=== PATIENT | female | born 1980 | race Caucasian/White ===

== ENCOUNTER 2016-05-11 10:52 | Inpatient (IN) | payer OTHER ==
[2016-05-11] MEDS ORDERED: NS 100 ML BAG (MINI-BAG) IV ONE (11:07)
[2016-05-11] MEDS ORDERED: AMPICILLIN SODIUM 2 GM/10 ML VIAL ONE (11:07)
[2016-05-11] MEDS ORDERED: fentaNYL 2MCG/ML/BUP 0.1% RTU 100 ML BAG EP ONE (11:18)
[2016-05-11] MEDS ORDERED: BUPIVACAINE 0.25% 30 ML SDV ONE (11:19)
[2016-05-11] MEDS ORDERED: fentaNYL 100 MCG/2 ML INJ ONE ×2 (11:19→15:17)
[2016-05-11] MEDS ORDERED: PHENYLEPHRINE HCL 100 MCG/ML SYR ONE (11:19)
[2016-05-11] MEDS ORDERED: ONDANSETRON 4 MG/2 ML VIAL ONE ×2 (11:33→16:00)
[2016-05-11] MEDS ORDERED: OLIVE OIL 118 ML BTL MISC PRN (11:41)
[2016-05-11] MEDS ORDERED: OXYTOCIN/RINGERS LACTATE 1,000 ML IV PRN (11:41)
[2016-05-11] MEDS ORDERED: LR 1,000 ML IV PRN (11:41)
[2016-05-11] MEDS ORDERED: EPSOM SALT 454 GM TP PRN (11:41)
[2016-05-11] MEDS ORDERED: TERBUTALINE SULFATE 1 MG/ML VIAL IV PRN (11:41)
[2016-05-11] MEDS ORDERED: LIDOCAINE 1% 30 ML SDV SC PRN (11:41)
--- NOTE | 2016-05-11 11:41 | OBPROG ---
OBG Progress Note Assessment/Plan: Assessment: cat 1 fhr vomiting/nausea epidural for pain relief srom clear 1000 contractions regular since 0800 Plan:expectant management of labor / epidural for pain relief 05/11/16 11:38 Subjective: I am hoping to get an epidural for pain relief - SVE Dilation (cm): 3 Effacement (%): 80 Station: -1 Current Contraction Pattern: Regular FHR (bpm): 135 FHR Pattern Variability: Moderate FHR Category: 1 Membranes: SROM Amniotic Fluid Color: Clear - Physical Exam General Appearance: WD/WN, alert, no apparent distress Respiratory: chest non-tender, lungs clear, normal breath sounds Cardiac/Chest: regular rate, rhythm Abdomen: normal bowel sounds Membranes: SROM Amniotic Fluid Color: clear Extremities: normal range of motion, Orion's sign (negqative bilaterally/ dtrs1 + bilaterally) Skin: normal color, warm/dry Neuro/Psych: no motor/sensory deficits, alert, normal mood/affect, oriented x 3 ICD10 Worksheet Patient Problems: Problems Problem Status Onset Full-term PROM with onset of labor within 24 hours of rupture Acute TERM LABOR PROM Acute - ICD10 Problem Qualifiers (2) Full-term PROM with onset of labor within 24 hours of rupture
[2016-05-11] MEDS ORDERED: AMPICILLIN SODIUM 2 GM/10 ML VIAL IV ONE (12:00)
[2016-05-11 12:10] LABS: % IMMATURE GRANULYOCYTES 0.6 % (0.0-1.1); ABSOLUTE IMMATURE GRANULOCYTES 0.12 10^3/uL (0.00-0.10); ADD DIFF? NO; ADD MORPH? NO; ADD SCAN? NO; ATYPICAL LYMPHOCYTE FLAG 0 (0-99); FRAGMENT RBC FLAG 0 (0-99); HEMATOCRIT 44.6 % (38.0-47.0); LEFT SHIFT FLG 0 (0-99); LIPEMIA HEMOLYSIS FLAG 90 (0-99); MEAN CELL HEMOGLOBIN 33.4 pg (27.9-34.1); MEAN CELL HEMOGLOBIN CONCENTR. 35.9 g/dL (32.4-36.7); MEAN CELL VOLUME 93.1 fL (81.5-99.8); MEAN PLATELET VOLUME 11.9 fL (8.7-11.7); PLATELET CLUMPS FLAG 10 (0-99); PLATELET COUNT 201 10^3/uL (150-400); RED BLOOD CELL COUNT 4.79 10^6/uL (4.18-5.33); RED CELL DISTRIBUTION WIDTH 12.8 % (11.5-15.2)
--- NOTE | 2016-05-11 12:26 | GHP ---
[f rep st] HISTORY AND PHYSICAL DATE OF ADMISSION: 05/11/2016 HISTORY OF PRESENT ILLNESS: The patient is a 1, para 0, 36-year-old with an EDC of 05/17/2016, which gives her a gestational age of 39 and 1/7 weeks , who comes in today, on 05/11/2016, with complaint of contractions since 8 a.m. on 05/11/2016, and rupture of membranes for clear fluid at 10 o'clock on . PAST MEDICAL HISTORY: The patient denies medical history other than anxiety. The patient states has had adenoids out, tonsillectomy, with some difficulty with anesthesia. The patient also had sinus surgery in 2000. History of diverticulitis. GYNECOLOGICAL HISTORY: The patient had previously taken OCPs in 2015. All Paps have been within normal limits. Last Pap 04/2014. History of a yeast infection x1. No difficulties. LABS: Patient is A positive, antibody negative. RPR is nonreactive. Rubella is immune. Hepatitis is negative. HIV is negative. Trio screen was negative. AFP was negative. Pap was within normal limits. Gonorrhea and chlamydia were negative. Verifi was negative. 1 hour GTT was within normal limits. Patient is GBS positive. ALLERGIES: NKDA. ASSESSMENT: GENERAL: Patient is awake, alert, oriented x3. LUNGS: Clear bilaterally. ABDOMEN: Bowel sounds are positive in all 4 quadrants. EXTREMITIES: DTRs are 1+ bilaterally and no clonus. Homans sign is negative bilaterally. GENITOURINARY: Abdomen is soft on palpation, santos every 2- 3 minutes. Exam is 3-4 cm, 80% effaced, -1 station, cephalic. PLAN OF CARE: 1. Group B strep positive. The patient is not allergic to any medications, so we will begin ampicillin per protocol. 2. Expectant management of labor. 3. Epidural for pain relief. /[id number]/MODL MTDD
[2016-05-11] MEDS ORDERED: AMMONIA AROMATIC 1 EACH AMP IH ONE (12:41)
[2016-05-11] MEDS ORDERED: LIDOCAINE 1% 30 ML SDV ONE (12:41)
[2016-05-11] MEDS ORDERED: OLIVE OIL 118 ML BTL ONE (12:41)
[2016-05-11] MEDS ORDERED: TERBUTALINE SULFATE 1 MG/ML VIAL ONE (12:42)
[2016-05-11] MEDS ORDERED: OXYTOCIN 10 UNIT/ML VIAL ONE (12:42)
[2016-05-11] MEDS ORDERED: MISOPROSTOL 200 MCG TAB ONE (12:42)
--- NOTE | 2016-05-11 13:00 | OBPROG ---
OBG Progress Note Assessment/Plan: Assessment: 35y/o IUP @39w1d FHR decel to 70-90bpm x10 min with return to baseline s/p interventions SVE change from 3cm to 6cm with decent from -1 to +1 station, anterior cerv edema Plan: Epidural for pain mgmt Con't maternal/ monitoring Con't GBS prophylaxis per protocol Expectant mgmt of labor 05/11/16 12:57 Subjective: Called to pt room d/t decreased FHTs. O2 being administered, pt on L side. Susanna WAYNEM at bedside. Changed to hands & knees position, FHTs still down. Dr. Bill paged to room. Pt changed to prone position, FHTs returned to baseline. Objective: 05/11/16 11:30 - SVE Dilation (cm): 6 Effacement (%): 80 Station: +1 Current Contraction Pattern: Irregular FHR (bpm): 120 (@1300 s/p decel) FHR Pattern Variability: Moderate FHR Category: 2 Membranes: SROM (@1000) Amniotic Fluid Color: Clear ICD10 Worksheet Patient Problems: Problems Problem Status Onset Full-term PROM with onset of labor within 24 hours of rupture Acute TERM LABOR PROM Acute
[2016-05-11] MEDS ORDERED: PHENYLEPHRINE HCL 100 MCG/ML SYR IVP PRN (13:34)
[2016-05-11] MEDS ORDERED: ONDANSETRON 4 MG/2 ML VIAL IVP PRN ×2 (13:34→18:56)
--- NOTE | 2016-05-11 13:39 | POSTANESTH ---
Post Anesthetic Evaluation Cardiovascular Status: Normal, Stable Respiratory Status: Normal, Stable, Similar to Pre-op Cond. Level of Consciousness/Mental Status: Can Participate in Eval, Alert and Oriented Pain Control: Adequate, Prn Tx Ordered Nausea/Vomiting Control: Adequate, Prn Tx Ordered Complications Possibly Related to Anesthesia: None Noted (Tolerated CSE well, stable, comfortable.)
--- NOTE | 2016-05-11 13:39 | PREANESOB ---
Obstetric Pre-Anesthesia Info - General Info Proposed Procedure: Labor and delivery. : 1 Para: 0 WBD: 39 - Info Status: Full Term Monitors: External FHR Baseline (bpm): 135 FHR Pattern: Reassuring - Labor Status Cervical Dilation per last OB SVE: 4 Station per last OB SVE: +1 Amniotic Fluid Color: Clear Indications for Labor Analgesia: Pain Control Labor Epidural: Proposed Anesthesia ROS: Negative. Allergies/Adverse Reactions: Allergy/AdvReac Type Severity Reaction Status Date / Time No Known Allergies Allergy Unverified 05/11/16 11:41 Home Medications: Medication Instructions Recorded Vit27&Calcium/Iron/FA 1 each PO DAILY 05/11/16 [ Rx 1 Tablet (RX)] Visit Medications: Generic Name Dose Route Start Last Admin Trade Name Freq PRN Reason Stop Dose Admin Ampicillin Sodium 1 gm 05/11/16 16:00 Ampicillin IV 06/10/16 15:59 Q4H RACHELL Lactated Ringer's 1,000 mls @ 0 mls/hr 05/11/16 11:41 05/11/16 13:19 Lr IV 11/07/16 11:40 1,000 mls PRN PRN Administration SEE PROTOCOL CONDITIONS Protocol Per Protocol Oxytocin/Lactated Ringer's 1,000 mls @ 150 mls/hr 05/11/16 11:41 Pitocin 20 Units/Lr (Premix) IV PRN PRN Post- bleeding Ibuprofen 600 mg 05/11/16 11:41 Motrin PO 11/07/16 11:40 Q6HRS PRN post , inflammation Lidocaine HCl 30 ml 05/11/16 11:41 Lidocaine Hcl 1% SC 11/07/16 11:40 ONCE PRN Episiotomy Magnesium Sulfate 454 gm 05/11/16 11:41 Epsom Salt TP 11/07/16 11:40 PRN PRN perineal discomfort Rollins Oil 118 ml 05/11/16 11:41 Sweet Oil MISC 11/07/16 11:40 ONCE PRN preneal massage Terbutaline Sulfate 0.25 mg 05/11/16 11:41 Brethine IV 11/07/16 11:40 ONCE PRN Tachysystole Discontinued Medications Generic Name Dose Route Start Last Admin Trade Name Freq PRN Reason Stop Dose Admin Ammonia (Aromatic Spirit) Confirm 05/11/16 12:41 Ammonia Aromatic Administered 05/11/16 12:42 Dose 1 each IH .STK-MED ONE Ampicillin Sodium Confirm 05/11/16 11:07 Ampicillin Administered 05/11/16 11:08 Dose 2 gm .ROUTE .STK-MED ONE Ampicillin Sodium 2 gm 05/11/16 12:00 05/11/16 11:30 Ampicillin IV 05/11/16 12:01 2 gm ONCE ONE Administration Bupivacaine HCl Confirm 05/11/16 11:19 Sensorcaine 0.25% Sdv Administered 05/11/16 11:20 Dose 30 ml .ROUTE .STK-MED ONE Ephedrine Sulfate Confirm 05/11/16 12:42 Ephedrine Sulfate Administered 05/11/16 12:43 Dose 50 mg .ROUTE .STK-MED ONE Fentanyl Confirm 05/11/16 11:19 Sublimaze Administered 05/11/16 11:20 Dose 100 mcg .ROUTE .STK-MED ONE Fentanyl/Bupivacaine HCl Confirm 05/11/16 11:18 Fentanyl/Bupivacaine/Ns 2 Mcg/Ml 0.1% (Premix Administered 05/11/16 11:19 Dose 100 ml EP .STK-MED ONE Lidocaine HCl Confirm 05/11/16 12:41 Lidocaine Hcl 1% Administered 05/11/16 12:42 Dose 30 ml .ROUTE .STK-MED ONE Misoprostol Confirm 05/11/16 12:42 Cytotec Administered 05/11/16 12:43 Dose 800 mcg .ROUTE .STK-MED ONE Rollins Oil Confirm 05/11/16 12:41 Sweet Oil Administered 05/11/16 12:42 Dose 118 ml .ROUTE .STK-MED ONE Ondansetron HCl Confirm 05/11/16 11:33 Zofran Administered 05/11/16 11:34 Dose 4 mg .ROUTE .STK-MED ONE Oxytocin Confirm 05/11/16 12:42 Pitocin Administered 05/11/16 12:43 Dose 40 unit .ROUTE .STK-MED ONE Phenylephrine HCl Confirm 05/11/16 11:19 Dhaval-Synephrine Administered 05/11/16 11:20 Dose 1,000 mcg .ROUTE .STK-MED ONE Sodium Chloride Confirm 05/11/16 11:07 Sodium Cl 0.9% (Mini-Bag) Administered 05/11/16 11:08 Dose 100 ml IV .STK-MED ONE Terbutaline Sulfate Confirm 05/11/16 12:42 Brethine Administered 05/11/16 12:43 Dose 1 mg .ROUTE .STK-MED ONE - Anesthesia History Response to Local Anesthetics: Normal - Social History Substance Use/Abuse: Denies - Focused Exam Blood Pressure: 115/74 Heart Rate: 60 Height/Weight (Nursing): Height 165.1 cm Weight 74.389 kg Physical Exam: Within normal limits. ASA Status: II Labs: 05/11/16 11:30 Patient ABO/Rh A POSITIVE 05/11/16 11:30 - Plan Anesthetic Plan: CSE Consent Signed and on Chart: Yes Patient/Guardian Understands and Agrees to Plan: Yes
[2016-05-11] MEDS ORDERED: fentaNYL 2MCG/ML/BUP 0.1% RTU 100 ML EP SCH (14:00)
[2016-05-11] MEDS ORDERED: LR 500 ML IV SCH (14:00)
--- NOTE | 2016-05-11 14:17 | OBPROG ---
OBG Progress Note Assessment/Plan: Assessment: cat 2-3 fhr vomiting/nausea resolved denies pain comfortable with epidural continued clear fluid from the vagina contractions q 3 minutes with occasional prolonged contractions 5-7 minutes ise applied by nurse during deceleration palpation to abdomen soft change in position on entrance to room to hands and knees to left side slow resolution of deceleration to baseline discussed potential for section verbalized understanding consult dr. christopher on poc Plan:expectant management of labor / epidural for pain relief 05/11/16 11:38 05/11/16 14:13 Objective: 05/11/16 11:30 Patient ABO/Rh A POSITIVE 05/11/16 11:30 Temp Pulse Resp BP Pulse Ox 60 115/74 05/11/16 13:38 05/11/16 13:38 - SVE Dilation (cm): 6 Effacement (%): 80 Station: 0 Current Contraction Pattern: Regular FHR (bpm): 145 (after deceleration 70-90) FHR Pattern Variability: Moderate FHR Category: 2 Membranes: SROM Amniotic Fluid Color: Clear ICD10 Worksheet Patient Problems: Problems Problem Status Onset Full-term PROM with onset of labor within 24 hours of rupture Acute TERM LABOR PROM Acute - ICD10 Problem Qualifiers (2) Full-term PROM with onset of labor within 24 hours of rupture
[2016-05-11] MEDS ORDERED: LIDO/EPI 2% **for epidural** 20 ML SDV ONE (15:16)
--- NOTE | 2016-05-11 15:37 | OBPROG ---
OBG Progress Note Assessment/Plan: Assessment: Plan: Subjective: patient came in in spontaneous labor. progressed to 6 cm. has had 3 prolonged decels. fhts have been very reassuring between decels. Just recently had her third decel to the 60's. fhts returned to baseline after 10 minutes. terbutaline was given. fhts returned to baseline and fhts showed spontaneous accel. long discission with patient and her about management options. patient is still remote from delivery and not making cervical change. discussed proceeding with pltcs now or if she has an additional deceleration. discussed if we proceed now it will be calmer. patient and her discussing. will sign consent and await her decision. Objective: 05/11/16 11:30 Patient ABO/Rh A POSITIVE 05/11/16 11:30 Temp Pulse Resp BP Pulse Ox 61 118/80 05/11/16 15:18 05/11/16 15:18 - SVE Dilation (cm): 6, 7 Effacement (%): 75 Station: -1 Current Contraction Pattern: Irregular FHR Pattern Variability: Moderate FHR Category: 1 Membranes: SROM ICD10 Worksheet Patient Problems: Problems Problem Status Onset Full-term PROM with onset of labor within 24 hours of rupture Acute TERM LABOR PROM Acute
[2016-05-11] MEDS ORDERED: ceFAZolin 2 GM/DEXTROSE 100 ML IV ONE (15:38)
[2016-05-11] MEDS ORDERED: OXYTOCIN 100 UNITS/10 ML VIAL ONE (16:00)
[2016-05-11] MEDS ORDERED: morphINE PF 5 MG/10 ML INJ ONE (16:02)
[2016-05-11] MEDS ORDERED: MEPERIDINE 25 MG/ML SYR ONE (16:17)
[2016-05-11] MEDS ORDERED: METOCLOPRAMIDE 10 MG/2 ML VIAL ONE ×2 (16:23)
[2016-05-11] MEDS ORDERED: DEXAMETHASONE 4 MG/ML VIAL ONE ×2 (16:23)
[2016-05-11] MEDS ORDERED: SIMETHICONE 80 MG TAB CHEW PO PRN (16:46)
[2016-05-11] MEDS ORDERED: BISACODYL 10 MG SUPP PR PRN (16:46)
[2016-05-11] MEDS ORDERED: LACTULOSE 20 GM/30 ML UDCUP PO PRN (16:46)
[2016-05-11] MEDS ORDERED: ACETAMINOPHEN 325 MG TAB PO PRN (16:46)
[2016-05-11] MEDS ORDERED: POLYETHYLENE GLYCOL 3350 17 GM PKT PO PRN (16:46)
[2016-05-11] MEDS ORDERED: MAGNESIUM HYDROXIDE 30 ML UDCUP PO PRN (16:46)
--- NOTE | 2016-05-11 16:52 | OBPROC ---
- Delivery Pre-op Diagnoses: IUP 39 2/7 weeks, intolerance of labor Post-op Diagnoses: same plus occiput posterior Procedure: Primary, Low Transverse Surgeon: Alexandra Bill Manager Asset Management: Buffy Shah Anesthesiologist: Aidan Coyne Anesthesia: Epidural Complications: None EBL: 800 - [place] Info Infant A Delivery Date: 05/11/16 Delivery Time: 16:12 Sex of : Female Score (1 Min): 8 Score (5 Min): 9
[2016-05-11 17:18] LABS: PH VENOUS CORD BLOOD 7.28 (7.20-7.42)
[2016-05-11] MEDS: KETOROLAC 30 MG/1 ML SDV IVP SCH (18:30)
[2016-05-11] MEDS ORDERED: NALOXONE HCL 0.4 MG/ML INJ IVP PRN (18:56)
--- NOTE | 2016-05-11 18:59 | POSTANESTH ---
Post Anesthetic Evaluation Cardiovascular Status: Normal, Stable, Similar to Pre-Op Cond Respiratory Status: Normal, Stable, Similar to Pre-op Cond. Level of Consciousness/Mental Status: Can Participate in Eval, Alert and Oriented (Epidural dosed for C Section, BP treated, comfortable for surgery, to PACU, no pain or nausea.) Pain Control: Adequate, Prn Tx Ordered Nausea/Vomiting Control: Adequate, Prn Tx Ordered Complications Possibly Related to Anesthesia: None Noted
[2016-05-11] MEDS: AMPICILLIN SODIUM 1 GM VIAL IV SCH ×2 (19:25→21:08)
[2016-05-12] MEDS: KETOROLAC 30 MG/1 ML SDV IVP SCH ×3 (00:07→11:53)
[2016-05-12] MEDS: SENNOSIDES/DOCUSATE SODIUM TAB PO SCH ×4 (00:16→22:05)
[2016-05-12] MEDS: AMPICILLIN SODIUM 1 GM VIAL IV SCH ×5 (04:25→18:12)
--- NOTE | 2016-05-12 04:52 | GOP ---
[f rep st] OPERATIVE REPORT DATE OF OPERATION: 05/11/2016 SURGEON: Alexandra Bill DO ASSEMBLER MOLDED FRAMES: Buffy Shah CNM. PREOPERATIVE DIAGNOSIS: 1. Intrauterine at 39-2/7 weeks gestation. 2. Spontaneous rupture of membranes. 3. intolerance of labor. POSTOPERATIVE DIAGNOSIS: 1. Intrauterine at 39-2/7 weeks gestation. 2. Spontaneous rupture of membranes. 3. intolerance of labor. 4. Occiput posterior. PROCEDURE PERFORMED: Primary low transverse section. FINDINGS: 1. Viable, 7-pound, 2-ounce female in the occiput posterior presentation, delivered at 4:14 p.m., and the Apgars were 8 and 9. 2. Intact placenta with 3-vessel cord. 1. Normal ovaries, uterus, and tubes. ESTIMATED BLOOD LOSS: 800 cc. INDICATIONS: Patient is a 36-year-old, 1, para 0, who is 39-2/7 weeks gestation. She prese nted after spontaneous rupture of membranes and in active labor. She progressed to 6 cm dilated. D uring her labor course, she had 3 separate incidences of prolonged decelerations to the 60s, lasting approximately 10 minutes. With repositioning and oxygen, the status did recover. After the last episode, the decelerations were in the 60s for 10 minutes. She had not made any cervical progr ess past 6 cm. A long discussion was had with the patient, after patient was given terbutaline and the heart tracings were reassuring, about the management options. We have discussed expected management and continued observation versus proceeding with a primary low transverse sectio n. We discussed the baby appears to be in occiput posterior presentation and she was making minimal cervical climate change analyst the last 2 hours, and has had 3 episodes of decelerations and was remote from delivery, so the recommendation was to proceed with a primary low transverse section. Risk s and benefits of the procedure were reviewed with the patient, and the patient elected to proceed w ith the procedure. The patient was properly consented. DESCRIPTION OF PROCEDURE: Patient was taken to the operating room with intravenous fluids in place. She was then placed on the operating room table in the dorsal supine position with a leftward tilt . Her epidural had been re-bolused. A Lee catheter was already in place and Venodynes were on he r lower extremities. She was then prepped and draped in the normal sterile fashion. Anesthesia was assessed and found to be adequate. A Pfannenstiel skin incision was then made 2 fingerbreadths abo ve the pubic symphysis. The incision was then carried through to the underlying layer of fascia wit h the Bovie. The fascia was then nicked in the midline, and the fascial incision was extended later ally. The superior aspect of the fascial incision was then grasped with a Rae, tented up, and th e underlying rectus muscle dissected off bluntly with the Bovie. The inferior aspect of the fascial incision was then grasped with the Rae, tented up, and the underlying rectus muscle dissected of f bluntly with the Bovie. The rectus muscle was then in the midline. The peritoneum was then identified, tented up, and entered sharply with the Metzenbaum scissors. The incision was exte nded superiorly and inferiorly, with excellent visualization of the bladder. The bladder blade was then inserted. The vesicouterine peritoneum was then identified, tented up, and entered sharply wit h the Metzenbaum scissors. The incision was extended laterally and the bladder flap was created dig itally. The bladder blade was then reinserted. The uterus was then incised in a low transverse fas hion with the scalpel. The uterine incision was extended laterally. Clear fluid was noted. The in allen was noted to be in the occiput posterior presentation. The infant's head was delivered through the incision, the remainder of the body was then delivered, and the shoulders were in the transvers e presentation. Delayed cord clamping was done for 1 minute. The cord was then clamped x2 and cut, and the was handed off to awaiting nurse practitioner. The cord blood was obtained . The intact placenta with 3-vessel cord delivered without difficulty. No obvious cause for the re petitive decelerations was noted, and the placenta was handed off. The uterus was then exteriorized and cleared of all clots and debris, and wrapped in a moist laparotomy sponge. The bladder blade w as then reinserted. Pitocin was then started. Ovaries, uterus, and tubes were unremarkable. The h ysterotomy was closed with 0 Vicryl in a running, locked fashion. A second 0 Vicryl stitch was used to imbricate the uterine incision. The uterus was then returned to the patient's abdomen. The gut ters were cleared of all clots and debris, and the hysterotomy remained hemostatic. Hemostats were used to grasp the peritoneum. It was reapproximated with 3-0 Vicryl in a running fashion. Rectus m uscle was reapproximated with 2-0 Vicryl in a running fashion. Fascia was closed with 0 Vicryl in a running fashion. Subcutaneous tissue was found to be hemostatic. Subcuticular tissue was reapprox imated with 3-0 Vicryl in a running fashion, and the skin was then closed with saloni. Sponge, lap , and needle counts were correct x2. Patient was transferred to recovery room in stable condition. /[id number]/MODL
--- NOTE | 2016-05-12 08:59 | OBPROG ---
OBG Progress Note Assessment/Plan: Assessment: 1) s/p 1LTCS secondary to intolerance to labor POD # 1 - pt is stable 2) Anemia - pt is asymptomatic Plan: Continue routine pp care Encourage ambulation Pt may shower later today Olivares to be removed this am Will start iron Plan for d/c home in 24-48 hrs 05/12/16 08:56 Subjective: Pt seen and examined. Doing well with no complaints. Pain is well controlled with IV meds. Pt not OOB yet, douglas clears, olivares in place, + flatus. NO BM yet. Moderate lochia. without difficulty. Objective: 05/12/16 06:10 Patient ABO/Rh A POSITIVE 05/11/16 11:30 Temp Pulse Resp BP Pulse Ox 36.6 C 68 16 99/56 L 96 05/12/16 08:00 05/12/16 08:00 05/12/16 08:00 05/12/16 08:00 05/12/16 08:00 Uterine Position/Fundal Height: Umbilicus -2 Uterine Tone: Firm - Physical Exam General Appearance: WD/WN, alert, no apparent distress Respiratory: lungs clear, normal breath sounds Abdomen: normal bowel sounds, soft, flatus (+), incision (C/D/I), dressing (in place, intact), other (Appropriate tenderness) Genitourinary: lochia (moderate) Extremities: non-tender, normal inspection Neuro/Psych: alert, normal mood/affect, oriented x 3 ICD10 Worksheet Patient Problems: Problems Problem Status Onset Status post primary low transverse section Acute TERM LABOR PROM Acute Full-term PROM with onset of labor within 24 hours of rupture Acute
[2016-05-12] MEDS: HYDROCODONE/APAP 5/325 TAB PO PRN ×4 (10:29→22:05)
[2016-05-12] MEDS: IBUPROFEN 600 MG TAB PO PRN (18:12)
[2016-05-12] MEDS: IRON POLYSAC/IRON HEME 28 MG TAB PO SCH (22:05)
[2016-05-13] MEDS: IBUPROFEN 600 MG TAB PO PRN ×4 (00:40→20:32)
[2016-05-13] MEDS: AMPICILLIN SODIUM 1 GM VIAL IV SCH ×2 (04:16→04:17)
[2016-05-13] MEDS: IRON POLYSAC/IRON HEME 28 MG TAB PO SCH ×2 (07:21→20:32)
[2016-05-13] MEDS: HYDROCODONE/APAP 5/325 TAB PO PRN ×4 (07:22→21:38)
[2016-05-13] MEDS: SENNOSIDES/DOCUSATE SODIUM TAB PO SCH ×2 (07:22→20:32)
--- NOTE | 2016-05-13 10:53 | SOAPPROG ---
SOAP Progress Note Assessment/Plan: Assessment: 35y/o day 2 s/p C/S, stable Plan: Con't routine PP care Anticipate discharge home tmrw 05/11/16 12:57 05/13/16 10:51 Subjective: Day 2 PP, resting comfortably in bed with at bedside. Pt reports pain well-controlled. Tolerating regular diet. Denies difficulty ambulating, voiding. Reports going well. Objective: Vital Signs Temp Pulse Resp BP Pulse Ox 36.2 C 65 16 104/69 96 05/13/16 07:30 05/13/16 07:30 05/13/16 07:30 05/13/16 07:30 05/13/16 07:30 Laboratory Results 05/12/16 06:10 05/12/16 05/13/16 05/14/16 05:59 05:59 05:59 Intake Total 3000 2500 Output Total 1525 1850 Balance 1475 650 Physical Exam - Physical Exam General Appearance: alert, no apparent distress Respiratory: lungs clear, normal breath sounds Cardiac/Chest: regular rate, rhythm, edema (+2 BLE edema) Abdomen: non-tender, soft, other (incision clean, dry, well-approximated) Skin: normal color, warm/dry Extremities: normal range of motion, non-tender Neuro/Psych: alert, normal mood/affect, oriented x 3 ICD10 Worksheet Patient Problems: Problems Problem Status Onset Full-term PROM with onset of labor within 24 hours of rupture Acute Status post primary low transverse section Acute TERM LABOR PROM Acute
[2016-05-13] MEDS: DOCUSATE SODIUM 100 MG CAP PO PRN (20:32)
[2016-05-14] MEDS: HYDROCODONE/APAP 5/325 TAB PO PRN ×5 (03:45→20:27)
[2016-05-14] MEDS: IBUPROFEN 600 MG TAB PO PRN ×4 (03:45→22:21)
[2016-05-14] MEDS: IRON POLYSAC/IRON HEME 28 MG TAB PO SCH ×2 (08:20→20:27)
[2016-05-14] MEDS: SENNOSIDES/DOCUSATE SODIUM TAB PO SCH ×2 (08:20→20:27)
[2016-05-14] MEDS: DOCUSATE SODIUM 100 MG CAP PO PRN (08:21)
--- NOTE | 2016-05-14 10:34 | SOAPPROG ---
SOAP Progress Note Assessment/Plan: Assessment: with pain nipples bruised with blisters ff@u after voiding. pain well managed vss ff@u scant rubra lochia incision approximated no ss of infection voiding without difficulty passing gas Plan:po day 3 expectant management choosing to go home tomorrow 05/11/16 11:38 05/11/16 14:13 05/14/16 10:29 Subjective: Doing well having some difficulty with Objective: Vital Signs Temp Pulse Resp BP Pulse Ox 36.3 C 71 14 113/68 97 05/14/16 08:24 05/14/16 08:24 05/14/16 08:24 05/14/16 08:24 05/14/16 08:24 Laboratory Results 05/12/16 06:10 05/13/16 05/14/16 05/15/16 05:59 05:59 05:59 Intake Total 2500 Output Total 1850 Balance 650 - Time Spent With Patient Time Spent With Patient: 20 minutes - Pending Discharge Pending Discharge Within 24 Hours: Yes Pending Discharge Date: 05/15/16 Pending Discharge Time: 11:00 ICD10 Worksheet Patient Problems: Problems Problem Status Onset Full-term PROM with onset of labor within 24 hours of rupture Acute Status post primary low transverse section Acute TERM LABOR PROM Acute - ICD10 Problem Qualifiers (2) Full-term PROM with onset of labor within 24 hours of rupture
[2016-05-14 22:21] VITALS: RESP 16
[2016-05-15] MEDS: HYDROCODONE/APAP 5/325 TAB PO PRN ×2 (01:56→06:30)
[2016-05-15] MEDS: IBUPROFEN 600 MG TAB PO PRN ×2 (04:58→11:40)
[2016-05-15 08:18] VITALS: PULSE 82; TEMP 97.2; O2SAT 97
--- NOTE | 2016-05-15 08:47 | SOAPPROG ---
SOAP Progress Note Assessment/Plan: Assessment: pod# 4 s/p PLTCS for intolerance of labor anemia breast feeding Plan: routine discharge instructions and post care 05/15/16 08:45 Subjective: patient is doing well. pain is well controlled. normal lochia. breast feeding is going well. denies headache and changes in vision. ambulating. passing gas. had a bowel movement. ready to go home. Objective: Vital Signs Temp Pulse Resp BP Pulse Ox 36.2 C 82 16 132/93 H 97 05/15/16 08:17 05/15/16 08:17 05/15/16 08:17 05/15/16 08:17 05/15/16 08:17 Laboratory Results 05/12/16 06:10 Physical Exam - Physical Exam General Appearance: WD/WN, alert, no apparent distress Respiratory: chest non-tender, lungs clear, normal breath sounds Cardiac/Chest: normal peripheral pulses, regular rate, rhythm Abdomen: normal bowel sounds, non-tender, soft, other (fundus firm and non tender) Skin: normal color, warm/dry, other (incision clean dry and intact - saloni) Extremities: normal range of motion, non-tender, normal inspection, normal capillary refill Neuro/Psych: no motor/sensory deficits, alert, normal mood/affect, oriented x 3 ICD10 Worksheet Patient Problems: Problems Problem Status Onset Full-term PROM with onset of labor within 24 hours of rupture Acute Status post primary low transverse section Acute TERM LABOR PROM Acute
[2016-05-15 09:40] VITALS: BP 131/82
[2016-05-15] MEDS: DOCUSATE SODIUM 100 MG CAP PO PRN (11:40)
[2016-05-15] MEDS: IRON POLYSAC/IRON HEME 28 MG TAB PO SCH (11:44)
== END 2016-05-15 13:30 | disposition home or self-care (01) | DRG 766 ==
LOC: FLD 10:52 → FOB 18:56
PROVIDERS: ADMIT Advanced Practice Midwife; ATTEND Obstetrics & Gynecology
PROC: 10D00Z1 Extraction of Products of Conception, Low, Open Approach (ICD-10-PCS; principal; 2016-05-11)
DX: O76 Abnormality in fetal heart rate and rhythm complicating labor and delivery (principal); O32.8XX0 Maternal care for other malpresentation of fetus, not applicable or unspecified; O99.820 Streptococcus B carrier state complicating pregnancy; Z3A.39 39 weeks gestation of pregnancy; Z37.0 Single live birth
CPT/HCPCS: J0290; J0690; J1100; J1885; J2274; J2370; J2405; J2590; J2765; J3010; J3105